=== PATIENT | female | born 1955 | race Caucasian/White ===

== ENCOUNTER 2021-03-10 11:40 | Emergency (ER) | payer OTHER ==
[~2021-03-10] VITALS: Ht 162.6 cm; Wt 86.2 kg
[~2021-03-10 11:40] MED LIST: DM MEDS; MEDR10TA10 PO
[2021-03-10 12:00] VITALS: BP 165/91
[2021-03-10] MEDS ORDERED: BENZ-13 PO (14:16)
[2021-03-10] MEDS ORDERED: ONDA4TAB5 PO (14:50)
== END 2021-03-10 15:02 | disposition home or self-care (01) ==
LOC: ER 11:44
DX: U07.1 COVID-19 (principal); I10 Essential (primary) hypertension; E11.9 Type 2 diabetes mellitus without complications; E78.5 Hyperlipidemia, unspecified; D25.9 Leiomyoma of uterus, unspecified; R91.8 Other nonspecific abnormal finding of lung field
CPT/HCPCS: 71045-TC

== ENCOUNTER 2022-06-10 21:44 | Emergency (ER) | payer MEDICARE, OTHER ==
[~2022-06-10] VITALS: Ht 162.6 cm; Wt 105.2 kg
[~2022-06-10 21:44] MED LIST changes: +BENZ-13 PO; +ONDA4TAB5 PO
--- NOTE | 2022-06-10 22:31 | NUR ---
PT BIBFAMILY FROM HOME C/O H/A X10 DAYS. PREVIOUSLY HAD VERTIGO 4 DAYS BEFORE, +NAUSEA. DTR AT BEDSIDE. PT PLACED COMFORTABLY IN BED, VITALS CHECKED.
--- NOTE | 2022-06-10 22:55 | NUR ---
EKG COMPLETED AT BEDSIDE
[2022-06-10] MEDS ORDERED: MORPHINE SULFATE INJ 2 MG/ML DISP.SYRIN IV ONE (23:00)
--- NOTE | 2022-06-10 23:00 | NUR ---
20GA RAC ESTABLISHED
--- NOTE | 2022-06-10 23:02 | NUR ---
PT TRANSPORTED TO CT, ACCOMPANIED BY TECH
[2022-06-10] MEDS ORDERED: MORPHINE SULFATE INJ 2 MG/ML DISP.SYRIN ONE (23:11)
--- NOTE | 2022-06-10 23:20 | NUR ---
PT RETURNED FROM CT
--- NOTE | 2022-06-10 23:22 | NUR ---
PAIN MEDICATION GIVEN VIA 20GA RAC
--- NOTE | 2022-06-10 23:25 | NUR ---
URINE COLLECTED, SENT TO LAB
[2022-06-10 23:40] LABS: BASOPHILS % (AUTO) 0.4 % (0.0-2.0); EOSINOPHILS % (AUTO) 1.2 % (0.0-6.0); HEMATOCRIT 42 % (33-45); HEMOGLOBIN 13.3 g/dL (11.5-14.8); LYMPHOCYTES # (AUTO) 2.2 K/uL (0.8-4.8); LYMPHOCYTES % (AUTO) 25.1 % (20.0-44.0); MEAN CORPUSCULAR HGB CONC 32 g/dl (31.0-36.0); MEAN CORPUSCULAR VOLUME 82 fL (82-100); MONOCYTES # (AUTO) 0.5 K/uL (0.1-1.30); MONOCYTES % (AUTO) 5.7 % (2.0-12.0); NEUTROPHILS # (AUTO) 5.9 K/uL (1.8-8.9); NEUTROPHILS % (AUTO) 67.6 % (43.0-81.0); PLATELET COUNT (AUTO) 157 K/uL (150-450); RED BLOOD CELL COUNT(AUTO) 5.16 MIL/uL (4.0-5.2); WHITE BLOOD COUNT (AUTO) 8.8 K/uL (4.3-11.0)
[2022-06-10 23:49] LABS: BILIRUBIN,URINE NEGATIVE (NEGATIVE); COLOR,URINE OTHER (YELLOW); LEUKOCYTE ESTERASE ,URINE 1+ (NEGATIVE); NITRITE, URINE NEGATIVE (NEGATIVE); PROTEIN,URINE NEGATIVE (NEGATIVE); UGLUCOSE NEGATIVE (NEGATIVE); UROBILINOGEN,URINE 0.2 EU/dL (0.2)
[2022-06-11 00:09] LABS: ALANINE AMINOTRANSFERASE 22 U/L (12-78); ALBUMIN 3.5 g/dL (3.4-5.0); ALKALINE PHOSPHATASE 63 U/L (46-116); ASPARTATE AMINOTRANSFERASE 17 U/L (15-37); BILIRUBIN,DIRECT 0.1 mg/dL (0.0-0.2); BILIRUBIN,TOTAL 0.2 mg/dL (0.2-1.0); CALCIUM, SERUM 9.1 mg/dL (8.5-10.1); CARBON DIOXIDE 29 mmol/L (21-32); CHLORIDE 102 mmol/L (98-107); CREATININE 0.6 mg/dL (0.6-1.3); GLUCOSE 138 mg/dL (74-106); POTASSIUM 3.8 mmol/L (3.5-5.1); SODIUM SERUM 138 mmol/L (136-145); TOTAL PROTEIN, SERUM 7.5 g/dL (6.4-8.2); UREA NITROGEN, BLOOD 17 mg/dL (7-18)
[2022-06-11 00:22] LABS: BACTERIA,URINE Rare /HPF (None Seen); RBC,URINE 0-2 /HPF (0-2); SQUAMOUS EPITHELIAL CELL,UR Moderate /HPF (None Seen)
--- NOTE | 2022-06-11 01:35 | NUR ---
2ND TROPONIN DRAWN BY LAB
[2022-06-11 02:47] VITALS: BP 140/86
--- NOTE | 2022-06-11 02:47 | NUR ---
Patient discharged to home in stable condition. Written and verbal after care instructions given. Patient verbalizes understanding of instruction. IV removed. Catheter intact and site benign. Pressure and 4x4 applied to site. No bleeding noted.
== END 2022-06-11 02:48 | disposition home or self-care (01) ==
LOC: ER 21:47
DX: I16.0 Hypertensive urgency (principal); R51.9 Headache, unspecified; I10 Essential (primary) hypertension; E78.5 Hyperlipidemia, unspecified; E11.9 Type 2 diabetes mellitus without complications; Z90.710 Acquired absence of both cervix and uterus; Z90.89 Acquired absence of other organs
CPT/HCPCS: 99285; 96374; 70450; 71045; 93005; 85025; 80048; 87086; 80076; 81001; 36415 ×2; 84484 ×2; 85730; J2270